=== PATIENT | male | born 1955 | race Caucasian/White ===

== ENCOUNTER → 2019-05-13 | Outpatient (CLI) | payer BC ==
[2019-05-13 18:26] LABS: Potassium 5.1 mmol/L (3.5-5.5)
== END | disposition home or self-care (01) ==
LOC: LABWHC1 11:43
PROVIDERS: ATTEND Internal Medicine
DX: E87.5 Hyperkalemia (principal)
CPT/HCPCS: 36415; 84132; 84295

== ENCOUNTER → 2019-06-13 | Outpatient (CLI) | payer BC ==
[2019-06-13 09:53] LABS: African American GFR (CKD) >90 (>60 ml/min/1.73 sqM); Anion Gap 7 mmol/L; Blood Urea Nitrogen 14 mg/dL (9-20); Calcium 9.3 mg/dL (8.4-10.2); Carbon Dioxide 30 mmol/L (22-30); Chloride 105 mmol/L (98-107); Glucose 81 mg/dL (74-99); Non-African American GFR(CKD) 78 (>60 ml/min/1.73 sqM); Potassium 4.1 mmol/L (3.5-5.1); Sodium 142 mmol/L (137-145)
== END | disposition home or self-care (01) ==
LOC: LABPAT 08:31
PROVIDERS: ATTEND Internal Medicine Clinical Cardiac Electrophysiology
DX: Z01.812 Encounter for preprocedural laboratory examination (principal); I48.91 Unspecified atrial fibrillation; I50.22 Chronic systolic (congestive) heart failure
CPT/HCPCS: 36415; 80048

== ENCOUNTER 2019-06-20 11:18 | Day surgery (SDC) | payer BC ==
[2019-06-17 10:40] VITALS: BMI 34.7
[~2019-06-20 11:18] MED LIST: LACTATED RINGERS 1,000 ML IV SCH; LIDOCAINE 1% 20 ML VIAL (10MG/ML) FOR IV START INTRADERMA PRN; SODIUM CHLORIDE 0.9% 1,000 ML IV SCH
[2019-06-20] MEDS ORDERED: SODIUM CHLORIDE 0.9% 500 ML 500 ML IV ONE (11:56)
[2019-06-20 11:59] VITALS: RESP 16; TEMP 97.6
[2019-06-20] MEDS ORDERED: LIDOCAINE 1% INJ 10MG/ML (20 ML MDV) ONE (12:26)
[2019-06-20] MEDS ORDERED: PROPOFOL 10 MG/ML 20 ML VIAL IV ONE (12:26)
[2019-06-20 18:02] VITALS: BP 117/71; PULSE 56
--- NOTE | 2019-06-23 15:11 | P.PCN ---
Preoperative Diagnosis: Diagnosis Persistent atrial fibrillation with underlying severe cardio myopathy Electrical cardioversion for atrial fibrillation 360 J shock in the anterior apical configuration failed to convert him in sinus rhythm Repeat 360 J biphasic shock in an AP configuration converted the patient to sinus rhythm successfully Patient was in sinus rhythm in the heart rates of 50s to 60s beats a minute Suggest Continue current medications for cardio myopathy Hopefully remains in sinus rhythm and we will reassess his LV function and degree of MR to see this any improvement If he has an early recurrence then antiarrhythmic therapies and be considered
== END 2019-06-20 13:50 | disposition home or self-care (01) ==
LOC: CATHEP 11:18
PROVIDERS: ATTEND Internal Medicine Clinical Cardiac Electrophysiology
DX: I48.19 Other persistent atrial fibrillation (principal); I42.0 Dilated cardiomyopathy; I11.0 Hypertensive heart disease with heart failure; I50.22 Chronic systolic (congestive) heart failure; I44.7 Left bundle-branch block, unspecified; I34.0 Nonrheumatic mitral (valve) insufficiency; E78.5 Hyperlipidemia, unspecified; Z79.899 Other long term (current) drug therapy; Z79.01 Long term (current) use of anticoagulants; Z98.890 Other specified postprocedural states
CPT/HCPCS: 92960; J2001; J2704

== ENCOUNTER → 2019-08-01 | Outpatient (CLI) | payer BC | END | disposition home or self-care (01) | CPT/HCPCS: 36415; 80051; 82565; 82947; 84520; 85027 ==

== ENCOUNTER 2019-11-29 06:49 | Day surgery (SDC) | payer BC ==
[2019-11-25 10:19] VITALS: BMI 27.8
[~2019-11-29 06:49] MED LIST changes: +DEXAMETHASONE SOD PHOSPHATE 10 MG/ML 1 ML VIAL IV ONE; +HYDROmorphone 0.5 MG/0.5 ML SYRINGE IVP PRN; -LIDOCAINE 1% 20 ML VIAL (10MG/ML) FOR IV START INTRADERMA PRN; +MIDAZOLAM 2 MG/2 ML VIAL IV PRN; +ONDANSETRON 4 MG/2 ML VIAL IVP ONE; +SCOPOLAMINE 1.5MG/72HR PATCH TRANSDERM ONE
[2019-11-29 07:36] LABS: Basophils % (A) 1 %; Eosinophils # (A) 0.1 k/uL (0-0.7); Eosinophils % (A) 3 %; HCT 50.6 % (39.0-53.0); HGB 17.4 gm/dL (13.0-17.5); Lymphocytes # (A) 1.2 k/uL (1.0-4.8); Lymphocytes % (A) 22 %; MCH 33.2 pg (25.0-35.0); MCHC 34.3 g/dL (31.0-37.0); MCV 96.9 fL (80.0-100.0); Mean Platelet Volume 8.9; Monocytes # (A) 0.4 k/uL (0-1.0); Monocytes % (A) 7 %; Neutrophils # (A) 3.7 k/uL (1.3-7.7); Neutrophils % (A) 66 %; Platelet Count 157 k/uL (150-450); RBC 5.23 m/uL (4.30-5.90); RDW 12.3 % (11.5-15.5); WBC 5.5 k/uL (3.8-10.6)
[2019-11-29 07:47] LABS: Calcium 9.6 mg/dL (8.4-10.2); Potassium 4.5 mmol/L (3.5-5.1)
[2019-11-29] MEDS ORDERED: SUCCINYLCHOLINE CHLORIDE 100 MG/5 ML SYR IV ONE (08:26)
[2019-11-29] MEDS ORDERED: GLYCOPYRROLATE 0.2 MG/ML 2 ML VIAL ONE (08:26)
[2019-11-29] MEDS ORDERED: PROTAMINE SULFATE 10 MG/ML 5 ML VIAL IV ONE (08:26)
[2019-11-29] MEDS ORDERED: ePHEDrine SULFATE/0.9% NACL/PF 50 MG/5 ML SYRINGE IV ONE (08:26)
[2019-11-29] MEDS ORDERED: HEPARIN SODIUM,PORCINE 10,000 UNIT/ML 1 ML VIAL ONE (08:26)
[2019-11-29] MEDS ORDERED: PHENYLEPHRINE-0.9% NACL SYG 1 MG/10 ML SYRINGE ONE (08:26)
[2019-11-29] MEDS ORDERED: PROPOFOL 10 MG/ML 20 ML VIAL IV ONE (08:26)
[2019-11-29] MEDS ORDERED: ROCURONIUM 10 MG/ML (5 ML VIAL) IV ONE (08:26)
[2019-11-29] MEDS ORDERED: NEOSTIGMINE 1 MG/ML 10 ML VIAL ONE (08:26)
[2019-11-29] MEDS ORDERED: FUROSEMIDE 10 MG/ML 2 ML VIAL ONE (08:26)
[2019-11-29] MEDS ORDERED: fentaNYL (PF) 50 MCG/ML 2 ML AMP ONE (08:26)
[2019-11-29] MEDS ORDERED: ONDANSETRON 4 MG/2 ML VIAL ONE (08:26)
[2019-11-29] MEDS ORDERED: MIDAZOLAM 2 MG/2 ML VIAL ONE (08:26)
[2019-11-29] MEDS ORDERED: LIDOCAINE 1% INJ 10MG/ML (20 ML MDV) ONE ×2 (08:26→08:55)
[2019-11-29] MEDS ORDERED: ceFAZolin 10 GM VIAL IVPB ONE (08:29)
--- NOTE | 2019-11-29 08:32 | P.HPCAR ---
History of Present Illness This is Dr. 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 fib ablation Continue current myopathy medications Continue anticoagulation HPI History of atrial fibrillation with severe cardio myopathy, symptomatic with t iredness fatigue and shortness of breath and exertion On medical treatment for cardio myopathy On amiodarone Failed amiodarone treatment for atrial fibrillation Appropriately anticoagulated History of hypertension, well controlled ROS: No fever chills or rigors, no cough, phlegm or expectoration, no nausea, vomiting or diarrhea, no hematuria, dysuria, no musculoskeletal complaints, no strokes or seizures, no skin lesions. EXAMINATION: Afebrile 98.2F, pulse rate 50 beats a minute, blood pressure 130/56 mmHg Breath sounds are equal bilaterally no rhonchi no crackles Heart sounds S1 and S2 are soft systolic murmurs were audible over the cardiac apex Abdomen soft nontender no masses no tenderness no rigidity No hepatojugular reflux No lower extremity edema REVIEW OF LABS, ECG & MEDICAL DATA White count 5.5, hematocrit 50, Sodium 140, potassium 4.5, BUN 20 and creatinine 1.0 Normal renal function Physical Exam Vitals: Vital Signs Temp Pulse Resp BP Pulse Ox 11/29/19 07:48 98.2 F 49 L 16 130/56 97 Intake and Output 11/28/19 11/29/19 11/29/19 22:59 06:59 14:59 Intake Total 75 Balance 75 Intake: IV 75 Other: Weight 94 kg Past Medical History Past Medical History: Atrial Fibrillation, Hyperlipidemia Additional Past Medical History / Comment(s): SEE DR STALLINGS'S HISTORY AND PH YSICAL FOR CARDIAC HISTORY History of Any Multi-Drug Resistant Organisms: None Reported Past Surgical History: Heart Catheterization, Hernia Repair Past Anesthesia/Blood Transfusion Reactions: No Reported Reaction Past Psychological History: No Psychological Hx Reported Past Alcohol Use History: None Reported Past Drug Use History: None Reported - Past Family History Father Family Medical History: Cancer Additional Family Medical History / Comment(s): LUNG CANCER Mother Family Medical History: Cancer Physical Examination Vital Signs Temp Pulse Resp BP Pulse Ox 11/29/19 07:48 98.2 F 49 L 16 130/56 97 Intake and Output 11/28/19 11/29/19 11/29/19 22:59 06:59 14:59 Intake Total 75 Balance 75 Intake: IV 75 Other: Weight 94 kg Results 11/29/19 07:25 11/29/19 07:25 CBC 11/29/19 Range/Units 07:25 WBC 5.5 (3.8-10.6) k/uL RBC 5.23 (4.30-5.90) m/uL Hgb 17.4 (13.0-17.5) gm/dL Hct 50.6 (39.0-53.0) % Plt Count 157 (150-450) k/uL Comprehensive Metabolic Panel 11/29/19 Range/Units 07:25 Sodium 140 (137-145) mmol/L Potassium 4.5 (3.5-5.1) mmol/L Chloride 107 (98-107) mmol/L Carbon Dioxide 25 (22-30) mmol/L BUN 20 (9-20) mg/dL Creatinine 1.04 (0.66-1.25) mg/dL Glucose 81 (74-99) mg/dL Calcium 9.6 (8.4-10.2) mg/dL Current Medications Generic Name Dose Route Start Last Admin Trade Name Freq PRN Reason Stop Dose Admin Hydromorphone HCl 0.5 mg 11/29/19 05:44 Dilaudid IVP 11/30/19 05:45 Q5M PRN Pain Control Sodium Chloride 1,000 mls @ 20 mls/hr 11/29/19 05:44 11/29/19 07:40 Saline 0.9% IV 75 mls .Q24H SCOOTER Administration Lactated Ringer's 1,000 mls @ 20 mls/hr 11/29/19 05:44 Lactated Ringers IV .Q24H SCOOTER Midazolam HCl 2 mg 11/29/19 05:44 Versed IV 11/30/19 05:45 ONCE PRN Anxiety Intake and Output 11/28/19 11/29/19 11/29/19 22:59 06:59 14:59 Intake Total 75 Balance 75 Intake: IV 75 Other: Weight 94 kg Patient Weight 11/30/19 06:59 Weight 94 kg 11/29/19 07:25 11/29/19 07:25
[2019-11-29] MEDS ORDERED: HEPARIN SODIUM (1,000 UNIT/ML) 1,000 UNIT in SODIUM CHLORIDE 0.9% 1,000 ML IRRIGATION ONE ×4 (09:01)
[2019-11-29] MEDS ORDERED: HEPARIN SOD,PORK IN 0.45% NACL 25,000 UNIT in 0.45% NACL 1 250ML.BAG IV ONE ×2 (09:01)
[2019-11-29] MEDS ORDERED: LIDOCAINE 1% INJ 10MG/ML (20 ML MDV) SQ ONE (09:23)
[2019-11-29 10:34] LABS: T4, Free (Free Thyroxine) 1.46 ng/dL (0.78-2.19)
[2019-11-29] MEDS ORDERED: ACETAMINOPHEN IV (For NPO) 1,000 MG in EMPTY BAG 1 BAG IVPB ONE (13:23)
[2019-11-29] MEDS ORDERED: HYDROcodone/APAP 5-325MG 1 EACH TAB PO PRN (13:23)
[2019-11-29] MEDS ORDERED: ACETAMINOPHEN TAB 325 MG TAB PO PRN (13:23)
[2019-11-29] MEDS ORDERED: IOPAMIDOL-370 100ML BTL INJ ONE (13:24)
[2019-11-29] MEDS ORDERED: FUROSEMIDE 10 MG/ML 4 ML VIAL ONE (13:25)
--- NOTE | 2019-11-29 13:46 | P.PCN ---
Preoperative Diagnosis: Diagnosis Atrial fibrillation, symptomatic, refractory to therapy, persistent Result No left atrial appendage mass seen on intracardiac echo Successful pulmonary vein isolation of all veins using cryo-ablation Common left-sided veins Complete entrance block in all 4 veins confirmed No evidence for phrenic nerve injury Linear ablation along the septum anteriorly Linear ablation mitral isthmus Esophageal deflection YES , extreme left-sided esophagus Electrical cardioversion with a synchronized shock across the chest YES Procedure details Patient was brought to the EP lab in a fasting state. Written informed consent was obtained prior to the procedure. Procedure performed under general anesthesia After initial muscle relaxant use, muscle relaxants were not given thereafter in order to assess phrenic nerve during procedure. Patient prepped and draped as per protocol Full cryo-set up with standard preparation of the cryoablation tools done. Femoral Venous access obtained on the right and left groins Venous and arterial Sheaths placed. Diagnostic catheters for the high right atrium, phrenic nerve stimulation and pacing, His bundle, RV and coronary sinus placed Intracardiac echo catheter placed. Long sheath placed in the right atrium Left and right transseptal catheterization performed under intracardiac echo g uidance. Intravenous heparin with aCT above 300 Later, catheter positioning and balloon positioning in the left atrium, under intracardiac echo guidance Diagnostic EP study with Coronary sinus pacing and recording Baseline measurements patient in atrial fibrillation, left bundle branch block pattern QRS 202 ms Transseptal catheterization performed RA pressure 11/5/8 LA pressure 14/8/11 Transseptal catheterization performed with standard sheath. The cryoablation sheath was then placed with an over the wire exchange without any acute complications. All 4 pulmonary veins were isolated in the following sequence: Left superior followed by left inferior followed by right superior followed by right inferior The cryo-ablation balloon was placed at the os of each vein 1.5 mL of IV dye was injected to confirm an occluded vein Goal during cryoablation was to achieve complete occlusion of the pulmonary vein, achieve -30 degrees C at 30 seconds and achieve -40 degrees C at 60 seconds and a time to effect of less than 60-90 seconds, . If not the balloon was repositioned to obtain this result After completion of Cryoblation with durations from 180-240 seconds, entrance block was confirmed with the Attain circular catheter in a roving fashion around the antrum of the pulmonary veins Phrenic nerve pacing was performed from the SVC, right innominate vein area and diaphragm voltage was monitored. Diaphragmatic contractions were also monitored manually for strength of contraction. Parameter goals for each cryo freeze Complete occlusion of the appropriate vein -30 degrees C by 30 seconds -40 degrees C by 60 seconds Minimum between minus 40-55 degrees C Thaw time greater than 10 seconds Balloon visualized by intracardiac echo The esophagus was intubated. Esophageal Temperature monitoring with a CIRCA catheter formed. Esophageal deflection for hypothermia of the esophagus below 30 degrees C Left superior pulmonary vein, as a common vein Difficult occlusion on account of very large atrium but finally successful complete isolation with cryoablation Complete isolation, entrance block Left inferior pulmonary vein, as a common left main Difficult occlusion on account of a very large left atrium but finally successful complete isolation with cryoablation Complete isolation, entrance block Right superior pulmonary vein, during phrenic nerve pacing Complete isolation, entrance block Right inferior pulmonary vein, during phrenic nerve pacing Complete isolation, entrance block At the end of the procedure the Achieve catheter was once again used to check for entrance block Phrenic nerve stimulation was performed to confirm diaphragmatic stimulation the end of the procedure Cine fluoroscopy was performed at the very end of the procedure to confirm movement of both diaphragms with inspiration and expiration RF ablation catheter was placed 3-D electro-anatomic mapping was performed Complete isolation of the veins at an anterolateral level was confirmed Following that linear ablation was performed along the anterior septum from the roof of the right-sided pulmonary vein down to the inferior aspect of the inferior right pulmonary vein, cardiac across fractionated electrograms along the septum The septum between this RF line and the right-sided veins was completely isolated Mapping in the mitral isthmus area revealed very rapid tachycardia with fractionated signals RF ablation performed from the anterior margin of the left-sided common loss to the mitral isthmus However the patient remained in atrial fibrillation and could not be electrical cardioverted initially Later in the catheters were removed and the external patches were repositioned, successful electrical cardioversion to sinus rhythm was performed At the end of the procedure the patient was extubated Heparin was reversed Venous sheaths were removed and hemostasis assured Procedures performed (PVI and linear ablation in the left atrium) Diagnostic EP study CS pacing and recording Left and right transseptal catheterization 3D mapping) Intracardiac echocardiography Pulmonary vein isolation with transseptal and comprehensive EPS, 24065 Left atrial anterior septal RF line, +[id number] Linear ablation, left atrium, +[id number] Electrical cardioversion with a synchronized shock across the chest [id number] Extended duration procedure on account of the size of the left atrium and the size of the antral aspects of the right-sided veins and the size of the left- sided common veins
--- NOTE | 2019-11-29 13:48 | P.PRLE ---
RE: Hong Dao Dear Denise Lorenzo underwent an A. fib ablation for symptomatic persistent A. fib He is a very dilated left atrium and is on anticoagulation He also has a cardio myopathy which has not improved on medical treatment Hopefully in sinus rhythm he will show some improvement in LV systolic function If he has recurrence of atrial fibrillation I will recommend dofetilide instead of amiodarone Thank you for entrusting me with the care of the patient Warm regards Sincerely Mauro Stallings
[2019-11-29] MEDS: carvediloL 6.25 MG TAB PO SCH (17:37)
[2019-11-29] MEDS ORDERED: ATORVASTATIN 20 MG TAB PO SCH (21:00)
[2019-11-29] MEDS: APIXABAN 5 MG TAB PO SCH (22:00)
--- NOTE | 2019-11-30 07:46 | P.DS ---
Providers Attending physician: Mauro Stallings Primary care physician: Denise [facility] Course: Patient is resting comfortably in bed. He did Coreg up to go to the bathroom no dizziness lightheadedness Mildly sore throat No chest discomfort a day and yesterday he had a bit of sensation in the chest Pansystolic murmur of the cardiac apex No S3 gallop Breath sounds are clear no rhonchi no crackles Abdomen soft Minimal tenderness in the groins no hematoma Afebrile 97.5F pulse rate in 40s, blood pressure 96/57 mmHg Impression Persistent atrial fibrillation Associated cardiopathy myopathy with dilated LV with severe LV dysfunction Underlying left bundle branch block pattern wide QRS Central mitral regurgitation without any structural mitral valve disease, no mitral valve prolapse Dilated mitral annulus, dilated LV Significant biatrial enlargement especially left atrium Status post cryoablation of the pulmonary veins, large left-sided common pulmonary vein At the end of the procedure the area of complete isolation and scar around the left-sided common vein measured 27.4 mm 29.7 mm with patent pulmonary veins Linear ablation of the mitral isthmus Linear ablation of the roof was not performed. The roof line was greater than 4.5 cm. However, finely fractionated electrograms were noted here Severe LV dysfunction dilated LV TSH 9.36, and amiodarone will be discontinued Sinus bradycardia left bundle branch block Today his heart rates are in the 40s blood pressure in the 90s patient is completely asymptomatic Plan Stop amiodarone completely If he has recurrence of atrial fibrillation I will use dofetilide after washout. For at least 2-3 months at the minimum Hopefully in sinus rhythm and his LV function will improve and if there is a reduction in size of the mitral annulus, hopefully Central mitral regurgitation was also reduce Otherwise he will need a biventricular ICD since he has a left bundle branch block pattern with severe LV dysfunction, wide QRS Will reduce the dose of lisinopril 5 mg by mouth daily We'll start spironolactone 12.5 mg by mouth daily Patient Condition at Discharge: Stable Plan - Discharge Summary Discharge Rx Participant: No New Discharge Prescriptions: Discontinued Amiodarone [Cordarone] 200 mg PO HS No Action Lisinopril [Prinivil] 10 mg PO DAILY Carvedilol [Coreg] 6.25 mg PO BID Atorvastatin [Lipitor] 20 mg PO HS Apixaban [Eliquis] 5 mg PO BID Discharge Medication List Apixaban [Eliquis] 5 mg PO BID 06/17/19 [History] Atorvastatin [Lipitor] 20 mg PO HS 06/17/19 [History] Carvedilol [Coreg] 6.25 mg PO BID 06/17/19 [History] Lisinopril [Prinivil] 10 mg PO DAILY 06/17/19 [History] Follow up Appointment(s)/Referral(s): Mauro Stallings MD [STAFF PHYSICIAN] - 1 Week Activity/Diet/Wound Care/Special Instructions: Post EP study - Ablation instructions 1. Keep access sites dry for 2 days. 2. No heavy lifting or straining for 2 days. 3. Avoid bending the hips repeatedly for 2 days. 4. You may go up and down stairs slowly Call if the following is noted 1. Bleeding, increasing swelling or pain at the access sites. 2. Increasing chest discomfort, especially upon taking a deep breath. 3. Increasing shortness of breath, at rest or with exertion. 4. Undue cough / phlegm 5. Difficulty or pain while swallowing. 6. Pain or change in color in the extremities. 7. Fever, chills, rigors. 8. Increasing headache or neurologic symptoms. 9. Dizziness, fainting, palpitations Reduce amiodarone to 100 mg by mouth daily Continue anticoagulation Discharge Disposition: HOME SELF-CARE
[2019-11-30 08:23] VITALS: RESP 16; TEMP 98
[2019-11-30] MEDS ORDERED: lisinopriL 10 MG TAB PO SCH (09:00)
[2019-11-30] MEDS ORDERED: SPIRONOLACTONE 25 MG TAB PO SCH (09:00)
[2019-11-30] MEDS: APIXABAN 5 MG TAB PO SCH (09:14)
[2019-11-30] MEDS: carvediloL 6.25 MG TAB PO SCH (09:15)
[2019-11-30 10:29] VITALS: BP 93/54; PULSE 43
[2019-11-30] MEDS ORDERED: lisinopriL 5 MG TAB PO SCH (21:00)
== END 2019-11-30 10:44 | disposition home or self-care (01) ==
LOC: CATHEP 06:49 → 3NCARDOBS 13:19 → CATHEP 11-30 10:44
PROVIDERS: ATTEND Internal Medicine Clinical Cardiac Electrophysiology
DX: I48.19 Other persistent atrial fibrillation (principal); I42.8 Other cardiomyopathies; I34.0 Nonrheumatic mitral (valve) insufficiency; I44.7 Left bundle-branch block, unspecified; I11.0 Hypertensive heart disease with heart failure; I50.22 Chronic systolic (congestive) heart failure; E78.5 Hyperlipidemia, unspecified; Z79.01 Long term (current) use of anticoagulants; Z79.899 Other long term (current) drug therapy; Z79.02 Long term (current) use of antithrombotics/antiplatelets; Z98.890 Other specified postprocedural states; Z80.1 Family history of malignant neoplasm of trachea, bronchus and lung; Z80.9 Family history of malignant neoplasm, unspecified
CPT/HCPCS: 85347; 92960; 93662; 93613; 93656; 93657; 84439; 80048; 84443; 84450; 84460; 85025; C1769 ×5; C1894; C1730 ×2; C1759; C1893; C1733; C1766; C1732; J2250; J2720; J1644 ×3; J1940; J2710; J0690; J2405; J2001; J3010; J2370; J0330; J2704; Q9967

== ENCOUNTER → 2020-03-05 | Outpatient (CLI) | payer BC ==
[2020-03-05 11:05] LABS: HCT 41.7 % (39.0-53.0); HGB 14.2 gm/dL (13.0-17.5); MCH 34.1 pg (25.0-35.0); MCV 100.2 fL (80.0-100.0); Mean Platelet Volume 8.3; Platelet Count 188 k/uL (150-450); RBC 4.16 m/uL (4.30-5.90); RDW 12.6 % (11.5-15.5); WBC 6.3 k/uL (3.8-10.6)
[2020-03-05 11:12] LABS: Potassium 4.5 mmol/L (3.5-5.1)
== END | disposition home or self-care (01) ==
LOC: LABPAT 10:01
PROVIDERS: ATTEND Internal Medicine Clinical Cardiac Electrophysiology
DX: Z01.818 Encounter for other preprocedural examination (principal); I42.0 Dilated cardiomyopathy
CPT/HCPCS: 36415; 80051; 82565; 84443; 84520; 85027

== ENCOUNTER 2020-03-13 09:24 | Day surgery (SDC) | payer BC ==
[2020-03-07 16:01] VITALS: BMI 29.2
[~2020-03-13 09:24] MED LIST changes: -DEXAMETHASONE SOD PHOSPHATE 10 MG/ML 1 ML VIAL IV ONE; -HYDROmorphone 0.5 MG/0.5 ML SYRINGE IVP PRN; -MIDAZOLAM 2 MG/2 ML VIAL IV PRN; -ONDANSETRON 4 MG/2 ML VIAL IVP ONE; -SCOPOLAMINE 1.5MG/72HR PATCH TRANSDERM ONE; +ceFAZolin 1,000 MG in SODIUM CHLORIDE 0.9% IRRIGATIO 250 ML IRRIGATION ONE
[2020-03-13] MEDS ORDERED: SODIUM CHLORIDE 0.9% 500 ML 500 ML IV ONE (09:52)
[2020-03-13] MEDS ORDERED: PROPOFOL 10 MG/ML 20 ML VIAL IV ONE (11:00)
[2020-03-13] MEDS ORDERED: MIDAZOLAM 2 MG/2 ML VIAL ONE (11:00)
[2020-03-13] MEDS ORDERED: ceFAZolin 1,000 MG VIAL ONE (11:00)
[2020-03-13] MEDS ORDERED: SODIUM CHLORIDE 0.9% 100 ML BAG ONE (11:00)
[2020-03-13] MEDS ORDERED: fentaNYL (PF) 50 MCG/ML 2 ML AMP ONE (11:00)
[2020-03-13] MEDS ORDERED: IOPAMIDOL-370 50ML BTL INJ ONE (11:15)
[2020-03-13] MEDS ORDERED: LIDOCAINE 1% INJ 10MG/ML (20 ML MDV) ONE (11:36)
[2020-03-13] MEDS ORDERED: LIDOCAINE 1% INJ 10MG/ML (20 ML MDV) SQ ONE (11:44)
[2020-03-13] MEDS ORDERED: HYDROcodone/APAP 5-325MG 1 EACH TAB PO PRN (14:28)
[2020-03-13] MEDS ORDERED: ACETAMINOPHEN TAB 325 MG TAB PO PRN (14:28)
[2020-03-13] MEDS ORDERED: ACETAMINOPHEN IV (For NPO) 1,000 MG in EMPTY BAG 1 BAG IVPB ONE (14:28)
--- NOTE | 2020-03-13 15:06 | P.EPPROC ---
- EP Procedure Note Electrophysiology Procedure Note: Left upper extremity venogram 15 mL of IV dye injected in the left arm. The axillary, subclavian veins of the left side as well as the innominate vein was patent Plan Proceed with biventricular ICD implantation
--- NOTE | 2020-03-13 15:50 | XR ---
EXAMINATION TYPE: XR chest 1V portable DATE OF EXAM: 03/13/2020 COMPARISON: NONE HISTORY: Lead placement check. TECHNIQUE: Single frontal view of the chest is obtained. FINDINGS: There is no suspicious focal air space opacity, pleural effusion, or pneumothorax seen. T he cardiac silhouette size is upper limits of normal. . Multi lead pacemaker/AICD is present with ronnie ds projecting over right atrium, right ventricle, and coronary sinus. The osseous structures are int act. IMPRESSION: No evidence of complication related multi lead pacemaker/defibrillator placement.
--- NOTE | 2020-03-13 16:20 | CE ---
CARDIAC ELECTROPHYSIOLOGY REPORT Hong Dao is a 64-year-old male patient who has severe nonischemic cardiomyopathy that has not improved despite guideline-directed medical therapy. He has normal coronary arteries. He has a left bundle branch block with a QRS width of almost 200 milliseconds. Patient brought to the EP lab for a Bi V ICD implantation for heart failure management and primary prevention of sudden cardiac . Patient was brought to the EP lab in a fasting state. Written informed consent was obtained prior to the procedure. The left shoulder area was prepped and draped as per protocol. 1% lidocaine was used for local anesthesia. A 4 cm incision was made parallel to the deltopectoral groove, about 1.5 cm medial to it. The incision was carried down to the level of the pectoralis muscle. A subfascial pocket was made. Hemostasis was assured. The left axillary vein was accessed at 3 separate points under fluoroscopy and via appropriately-sized introducer sheaths. Three leads were positioned. The atrial lead was a [employer] model #2088TC, 52 cm in length and serial number [id number]. The patient was in atrial fibrillation, the lead was screwed in the right atrial appendage and was stable. Impedances are stable. The RV lead was a single coil ICD lead, model #LDA 2102 Q, 65 cm length and serial #[id number]. This was positioned in the low right ventricle and screwed in. R-waves were greater than 12 mV, pacing impedance 610 ohms, pacing threshold 0.7 V at 0.5 milliseconds, 10 V test negative. The coronary sinus was then cannulated and coronary sinus venogram was performed. This showed a very large lateral vein. Multiple tributaries in the middle cardiac vein. This vein was then targeted for LV lead placement and LV lead placed was a [employer] model #1458 QL, 86 cm in length and serial #[id number]. The lead was placed in multiple tributaries of the lateral vein. They consistently had two issues, one was the first was stability where the coronary sinus sheath was affected and the second diaphragmatic stimulation intermittently in certain positions. Thresholds are also elevated in the mid 2.0 range at 0.5 milliseconds at various positions. Multiple inner sheaths and multiple attempts were made to find a position that was stable. Finally, the last position we obtained seen very stable, but were withdrawn to the sheath. Once again, the leads slipped back. The stylet was placed and it was positioned in yet a different tributary of the lateral vein and was very stable. However, in the distal 2 poles stimulation was noted, but none was noted in the proximal poles of 3, 4. The pacing threshold was 1.5 V at 0.5 milliseconds, pacing impedance 630 ohms. The high-voltage impedance was 80 ohms from the RV to can. The leads were then secured to the underlying pectoralis muscle using 2 nonabsorbable sutures. Pocket was irrigated with antibiotic solution. Leads were connected to the generator (CD 3369-40 Q serial #[id number]. The leads and generator were then placed in subfascial pocket. The wound was closed in 3 layers and dressed per protocol. RESULTS: Successful biventricular ICD implantation for management of nonischemic cardiomyopathy with heart failure with underlying left bundle branch block and ejection fraction of 30% despite guideline-directed medical treatment for greater than 3 months. PLAN: The patient was in atrial fibrillation. Therefore the dose of carvedilol was increased to 12.5 mg twice daily. He had held his Eliquis for 2 days prior to the procedure. I will bring him back for DFT testing and electrical cardioversion and loading the sotalol 120 mg twice daily for 3 days prior to the procedure. This will be performed in about 3 months. CEASAR / MARLY: [id number] /
[2020-03-13] MEDS: carvediloL 12.5 MG TAB PO SCH (20:36)
[2020-03-13] MEDS: APIXABAN 5 MG TAB PO SCH (20:36)
[2020-03-13] MEDS ORDERED: lisinopriL 5 MG TAB PO SCH (21:00)
[2020-03-13] MEDS ORDERED: carvediloL 6.25 MG TAB PO SCH (21:00)
[2020-03-13] MEDS ORDERED: ATORVASTATIN 20 MG TAB PO SCH (21:00)
[2020-03-14] MEDS ORDERED: LEVOTHYROXINE 50 MCG TAB PO SCH (06:30)
[2020-03-14 08:01] VITALS: RESP 16; TEMP 98
--- NOTE | 2020-03-14 08:28 | P.DS ---
Providers Attending physician: Mauro Stallings Primary care physician: Denise [facility] Course: Patient is doing well. No dizziness lightheadedness no palpitations On telemetry he is in atrial fibrillation with an intrinsic conduction He's not by placed on account of his heart rates The dose of Coreg was just increased to 12.5 mg twice daily yesterday His vitals are stable. His blood pressure readings were 100/60 mmHg through the right We checked his blood pressure standing position and it is 110 systolic he has no dizziness no lightheadedness and is ambulating around in the room Heart sounds are normal breath sounds are clear is no soakage no swelling in the ICD site Abdomen soft nontender Extremities are warm no edema Impression Severe nonischemic Visit underlying left bundle branch block Congestive heart failure class II systolic, chronic This is despite that endorectal medical treatment for several months beyond 3 months Status post biventricular ICD Chest x-ray did not show any pneumothorax He received IV antibiotics His device interrogation is within normal limits he may go home and follow-up in the device clinic in one week and see me again in about 6 weeks The plan for the future is Resume anticoagulation. For some reason patient did not take antibiotic regulation for 3 doses prior to the procedure After anticoagulation for about 4 weeks-6 weeks I will start him on sotalol 120 mg twice daily and cardiovert him At the same time DFT testing will also be performed His beta gely dose will have to be readjusted Resume ELIQUIS Plan - Discharge Summary Discharge Rx Participant: No New Discharge Prescriptions: New Carvedilol [Coreg] 12.5 mg PO BID #180 tablet Continue Atorvastatin [Lipitor] 20 mg PO HS Apixaban [Eliquis] 5 mg PO BID Spironolactone [Aldactone] 12.5 mg PO DAILY #50 tablet lisinopriL [Prinivil] 5 mg PO HS Levothyroxine Sodium [Synthroid] 50 mcg PO DAILY Discontinued carvediloL [Coreg] 6.25 mg PO BID Discharge Medication List Apixaban [Eliquis] 5 mg PO BID 06/17/19 [History] Atorvastatin [Lipitor] 20 mg PO HS 06/17/19 [History] Spironolactone [Aldactone] 12.5 mg PO DAILY #50 tablet 11/30/19 [Rx] Levothyroxine Sodium [Synthroid] 50 mcg PO DAILY 03/07/20 [History] lisinopriL [Prinivil] 5 mg PO HS 03/07/20 [History] Carvedilol [Coreg] 12.5 mg PO BID #180 tablet 03/13/20 [Rx] Follow up Appointment(s)/Referral(s): Mauro Stallings MD [STAFF PHYSICIAN] - 1 Week (is clinic follow-up in 1 week Follow-up with Dr. Stallings in 3 months) Activity/Diet/Wound Care/Special Instructions: PATIENT EDUCATION MATERIAL Instructions following a heart rhythm device implant. 1. Keep dressing DRY for 5 DAYS. You may cover the area with Saran or Cling Wrap, prior to a shower. 2. The dressing will be removed in the Device Clinic at [facility]. Absorbable sutures were used to close the wound. 3. Avoid raising the left arm above the shoulder level. 4 week restriction 4. Avoid arm movements, like backscratching, rubbing the head, or pulling on a cord. 4 weeks restriction 5. Gentle range of motion movements of the shoulder, closest to the incision should be performed to avoid a frozen shoulder. (Pendulum exercises of the shoulder) 6. The opposite arm may be used freely. 7. Avoid driving for 7 days. 8. Avoid activities such as golfing, swimming, weed whacking, lifting more than 10 pounds weight, bowling, gymnastics and weight training/lifting. (6 weeks restriction) 9. Activities such as wood chopping with an axe, pull-ups in the gymnasium, power lifting, arc-welding, being close to home induction cooktops will always be a problem. 10. Arm sling is only a reminder not to raise the arm above the head. You do not need to keep the arm completely immobilized. Your free to move the arm and use it and for normal activities. In case of any problems, please call [facility], [place], @ [phone], Attention: Device Clinic Device clinic follow-up in 5 days Follow-up with primary fusing machine feeder in 2-3 months Resume all current medications including ELIQUIS Discharge Disposition: HOME SELF-CARE
--- NOTE | 2020-03-14 08:31 | P.PRLE ---
RE: Hong Dao Dear Denise Dear Holli underwent implantation of a biventricular ICD for primary prevention of sudden cardiac and management of heart failure. As you know he has severe nonischemic cardiomyopathy with heart failure and a left bundle branch block with QRS width of about 200 ms. At this time I have increased the dose of carvedilol to 12.5 mg twice daily. He will continue all his other medications including anticoagulation Thank you for entrusting me with the care of the patient Warm regards Sincerely Mauro Stallings
[2020-03-14] MEDS: carvediloL 12.5 MG TAB PO SCH (08:38)
[2020-03-14] MEDS: APIXABAN 5 MG TAB PO SCH (08:38)
[2020-03-14] MEDS ORDERED: SPIRONOLACTONE 25 MG TAB PO SCH (09:00)
[2020-03-14 10:03] VITALS: BP 110/79; PULSE 79
== END 2020-03-14 11:00 | disposition home or self-care (01) ==
LOC: CATHEP 09:24 → 3NCARDOBS 15:22 → CATHEP 03-14 11:00
PROVIDERS: ATTEND Internal Medicine Clinical Cardiac Electrophysiology
DX: I42.8 Other cardiomyopathies (principal); I11.0 Hypertensive heart disease with heart failure; I50.22 Chronic systolic (congestive) heart failure; I42.0 Dilated cardiomyopathy; I44.7 Left bundle-branch block, unspecified; I49.5 Sick sinus syndrome; I48.19 Other persistent atrial fibrillation; E07.9 Disorder of thyroid, unspecified; E78.5 Hyperlipidemia, unspecified; I34.0 Nonrheumatic mitral (valve) insufficiency; Z79.02 Long term (current) use of antithrombotics/antiplatelets; Z79.890 Hormone replacement therapy; Z79.01 Long term (current) use of anticoagulants; Z79.899 Other long term (current) drug therapy
CPT/HCPCS: 33225; 33249; 71045; C1769 ×5; C1892; C1898; C1900; C1777; C1882; J2250; J0690 ×3; J2001; J3010; J2704; Q9967

== ENCOUNTER 2020-05-08 10:13 | Day surgery (SDC) | payer BC, MEDICARE ==
[~2020-05-08 10:13] MED LIST changes: -ceFAZolin 1,000 MG in SODIUM CHLORIDE 0.9% IRRIGATIO 250 ML IRRIGATION ONE
[2020-05-08] MEDS ORDERED: SODIUM CHLORIDE 0.9% 1,000 ML IV ONE (10:21)
[2020-05-08 10:47] VITALS: RESP 16; TEMP 98
[2020-05-08] MEDS ORDERED: PROPOFOL 10 MG/ML 50 ML VIAL IV ONE (12:03)
[2020-05-08] MEDS ORDERED: LIDOCAINE 1% INJ 10MG/ML (20 ML MDV) ONE (12:03)
[2020-05-08] MEDS ORDERED: MIDAZOLAM 2 MG/2 ML VIAL ONE (12:03)
--- NOTE | 2020-05-08 13:06 | P.EPPROC ---
- EP Procedure Note Electrophysiology Procedure Note: Diagnoses Nonischemic cardiomyopathy Persistent atrial fibrillation Status post Bi V ICD, [facility] DFT testing under anesthesia DC fibber shock was used to induce ventricle atrial fibrillation This was adequately and appropriately detected at least sensitivity and successfully internally defibrillated with a 20 J shock The 10 J shock was unsuccessful Total charge time 3.4 seconds, high-voltage impedance 70 ohms Patient remained of atrial fibrillation Electrical cardioversion Successful electrical cardioversion with a 360 J external shock in the AP configuration Patient went back into atrial paced rhythm Biventricular ICD interrogation with reprogramming Atrial pacing threshold 0.5 V at 0.5 ms. P waves greater than 5 mV. Pacing impedance 550 ohms RV threshold 1 warted 0.5 ms, R waves greater than 12 mV and wheezing impedance 490 ohms LV pacing threshold 1.25 V at 0.5 ms pacing impedance 690 ohms High-voltage impedance 62 ohms Biventricular ICD was reprogrammed Rate responsiveness was added First cardioversion at 20 J First defibrillation 36 J Appropriate antitachycardia pacing cardioversion and defibrillation programmed Plan Continue metoprolol succinate 150 mrem every morning Continue sotalol 120 mg twice daily Continue ELIQUIS 5 g twice daily Continue lisinopril and spironolactone Follow up in the device clinic in 6 weeks Follow-up with Dr. Stallings in 3 months
[2020-05-08 13:51] VITALS: BP 124/62; PULSE 69
== END 2020-05-08 13:31 | disposition home or self-care (01) ==
LOC: CATHEP 10:13
PROVIDERS: ATTEND Internal Medicine Clinical Cardiac Electrophysiology
DX: I42.0 Dilated cardiomyopathy (principal); I48.19 Other persistent atrial fibrillation; I11.0 Hypertensive heart disease with heart failure; I50.22 Chronic systolic (congestive) heart failure; I44.7 Left bundle-branch block, unspecified; I49.5 Sick sinus syndrome; E78.5 Hyperlipidemia, unspecified; Z79.890 Hormone replacement therapy; Z79.01 Long term (current) use of anticoagulants; Z79.899 Other long term (current) drug therapy; Z95.810 Presence of automatic (implantable) cardiac defibrillator
CPT/HCPCS: 92960; 93642; J2250; J2001; J2704

== ENCOUNTER → 2021-01-14 | Outpatient (CLI) | payer MEDICARE | END | disposition home or self-care (01) | LOC: LABWHC1 09:19 | PROVIDERS: ATTEND Nurse Practitioner Adult Health | DX: Z53.9 Procedure and treatment not carried out, unspecified reason (principal) ==

== ENCOUNTER → 2021-01-24 | Outpatient (CLI) | payer MEDICARE ==
[2021-01-25 01:45] LABS: African American GFR (CKD) 60.7 (60.0-200.0); BUN/Creat Ratio 10.71 Ratio (12.00-20.00); Calcium 9.9 mg/dL (8.7-10.3); Magnesium 1.9 mg/dL (1.5-2.4); Non-African American GFR(CKD) 52.4 (60.0-200.0); Potassium 4.9 mmol/L (3.5-5.5)
== END | disposition home or self-care (01) ==
LOC: LABWHC1 09:12
PROVIDERS: ATTEND Nurse Practitioner Adult Health
DX: I42.0 Dilated cardiomyopathy (principal)
CPT/HCPCS: 36415; 80048; 83735

== ENCOUNTER → 2024-10-04 | Outpatient (CLI) | payer MEDICARE ==
[2024-10-05 00:01] LABS: Cryptosporidium Antigen Negative (Negative)
== END | disposition home or self-care (01) ==
LOC: LABPRL 09:06
PROVIDERS: ATTEND Internal Medicine
DX: R19.7 Diarrhea, unspecified (principal)
CPT/HCPCS: 82272; 83630; 87324; 87328; 87329